=== PATIENT | male | born 1990 | race Caucasian/White ===

== ENCOUNTER 2017-03-04 09:34 | Emergency (ER) | payer OTHER ==
[~2017-03-04] VITALS: Ht 180.3 cm; Wt 79.4 kg
[2017-03-04] MEDS ORDERED: BUTALB-APAP-CA1 EACH PO (11:18)
[2017-03-04] MEDS ORDERED: PRILOSEC 20 MG20 MG PO (11:18)
[2017-03-04] MEDS ORDERED: ZOFRAN ODT4 MG PO (11:18)
[2017-03-04 11:44] VITALS: BP 96/66
== END 2017-03-04 11:54 | disposition home or self-care (01) ==
LOC: ER 09:34
DX: G43.901 Migraine, unspecified, not intractable, with status migrainosus (principal); K92.0 Hematemesis; F17.210 Nicotine dependence, cigarettes, uncomplicated; F12.10 Cannabis abuse, uncomplicated